=== PATIENT | male | born 1935 | race Caucasian/White ===

== ENCOUNTER → 2018-01-07 | Day surgery (SDC) | payer OTHER ==
[~2018-01-07] VITALS: Ht 162.6 cm; Wt 70.3 kg
[~2018-01-07] MED LIST: ASPIRIN325 MG PO; COD LIVER OIL1 EACH PO; COLACE100 MG PO; FLOMAX0.4 MG PO; HYDROCHLOROTHIA25 MG PO; LIPITOR80 MG PO; LOSARTAN POTASS25 MG PO; LOW DOSE ASPIRI81 M1 PO; MOTRIN400 MG PO; POTASSIUM-9999 MG PO; PRINIVIL20 MG PO; SIMVASTATIN5 MG; TRAMADOL HCL50 MG PO; TYLENOL EXTRA500 MG PO; VITAMIN D2000 UNIT PO; XARELTO15 MG PO; [UNRECOGNIZED DRUG - OTHER] PO
== END | disposition home or self-care (01) ==
LOC: CATH 11:06
DX: R94.39 Abnormal result of other cardiovascular function study (principal); Z53.09 Procedure and treatment not carried out because of other contraindication; Z79.01 Long term (current) use of anticoagulants

== ENCOUNTER 2018-01-14 11:27 | Day surgery (SDC) | payer OTHER | END 2018-01-14 18:30 | disposition home or self-care (01) | LOC: CATH 11:27 | DX: I25.10 Atherosclerotic heart disease of native coronary artery without angina pectoris (principal); I25.82 Chronic total occlusion of coronary artery; I48.0 Paroxysmal atrial fibrillation; Z79.01 Long term (current) use of anticoagulants; I10 Essential (primary) hypertension; E78.5 Hyperlipidemia, unspecified | CPT/HCPCS: C1750; C1769; C1887; J1644; J2250; J3010; J7040 ==